=== PATIENT | female | born 1975 | race Caucasian/White ===

== ENCOUNTER 2022-09-25 09:36 | Outpatient (CLI) | payer OTHER, SELFPAY | END 2022-09-25 09:37 | disposition home or self-care (01) | PROVIDERS: PCP Family Medicine; Referring Provider Family Medicine; Visit Provider Family Medicine | DX: R35.0 Frequency of micturition (principal); I10 Essential (primary) hypertension; R53.83 Other fatigue; Z13.6 Encounter for screening for cardiovascular disorders | CPT/HCPCS: 80048; 80061; 81015; 82728; 84443; 85025 ==

== ENCOUNTER 2023-03-07 08:00 | Outpatient (CLI) | payer OTHER, SELFPAY ==
--- NOTE | 2023-03-07 08:15 | CRLHL7_ITS ---
For Patients: As a result of the Century Cures Act, medical imaging exams and procedure reports are released immediately into your electronic medical record. You may view this report before your referring provider. If you have questions, please contact your health care provider. INDICATION: EXCESSIVE BLEEDING COMPARISON: CT 04/06/2019 TECHNIQUE: 2D bradshaw scale and color Doppler images were acquired of the pelvis using a transabdominal and transvaginal approach. FINDINGS: Sonographic images demonstrate a normal size and smooth outer contour of the uterus. Uterus measures 9.2 cm in length by 5.4 cm in AP diameter by 6.3 cm in transverse dimension. The myometrium has a heterogeneous echotexture. Intramural fibroid within the left uterine fundus measuring 2.9 x 2.4 x 3.1 cm. Small fundal intramural fibroid measuring 1.5 x 1.4 x 1.3 cm. Additional lower uterine segment posterior fibroid measuring 1.4 x 0.9 x 1.3 cm. The endometrial lining appears thickened and irregular and measures 13 mm in composite thickness. The ovaries are not visualized. There is an area of indeterminate and ill-defined hypoechoic tissue within the right lower quadrant measuring 3.3 x 1.9 x 2.9 cm. IMPRESSION: Multiple uterine fibroids measuring up to 3.1 cm. Thickened heterogeneous endometrium measuring 1.3 cm. Indeterminate area of ill-defined tissue within the right lower quadrant corresponding to the area of tenderness measuring 3.3 cm. This may represent a hernia although this was not present on the prior study. Further evaluation with CT may be useful. Nonvisualization of the ovaries. No excess pelvic free fluid. Dictated by Abhijeet Rich MD @ 03/08/2023 4:18:17 PM (Electronically Signed)
== END 2023-03-07 08:01 | disposition home or self-care (01) ==
LOC: US 08:01
PROVIDERS: PCP Family Medicine; Visit Provider Family Medicine
DX: N93.9 Abnormal uterine and vaginal bleeding, unspecified (principal); D25.9 Leiomyoma of uterus, unspecified; R93.89 Abnormal findings on diagnostic imaging of other specified body structures
CPT/HCPCS: 76830; 76856

== ENCOUNTER 2023-03-26 09:38 | Outpatient (CLI) | payer OTHER, SELFPAY ==
--- NOTE | 2023-03-26 10:00 | CRLHL7_ITS ---
For Patients: As a result of the Century Cures Act, medical imaging exams and procedure reports are released immediately into your electronic medical record. You may view this report before your referring provider. If you have questions, please contact your health care provider. Indication: right lower quadrant pain, right groin pain since Technique: Postcontrast CT abdomen and pelvis. 125 cc Isovue 370 intravenous contrast. Please note that all CT scans at this facility use dose modulation, iterative reconstruction, and/or weight-based dosing when appropriate to reduce radiation dose to as low as reasonably achievable. Comparison: 03/07/2023 pelvic ultrasound, 04/06/2019 CT abdomen and pelvis Findings: Benign 3 millimeter calcified granuloma is present within the right middle lobe. No pleural effusion or basilar infiltrate. The liver is within normal limits. No stigmata of cirrhosis. The gallbladder is normal. No calcified gallstones or biliary obstruction. Stable calcification in the pancreatic tail. No pancreatic lesion. Spleen normal. 2.2 cm hiatal hernia. Adrenal glands are normal. Normal kidneys. No solid renal mass or renal stone. No hydronephrosis. No free air. Uterine fibroids again noted with lobular contour of the uterine fundus. Ovaries are normal. A few scattered air-fluid levels are present within nondistended loops of right colon. The appendix is within normal limits. The ureters are unremarkable. The bladder is within normal limits. Scattered subcentimeter retroperitoneal lymph nodes are similar. No vertebral body compression fracture. No intrinsic osseous lesion. Umbilical hernia containing fat is present measuring 1.[address] evidence of inguinal hernia or femoral hernia. Impression: No CT evidence of right lower quadrant abdominal wall hernia. 1.4 cm umbilical hernia containing fat is present. No bowel involvement. Fibroid uterus. 2.2 cm hiatal hernia. Benign 3 millimeter right middle lobe calcified granuloma. Please note that all CT scans at this facility use dose modulation, iterative reconstruction, and/or weight-based dosing when appropriate to reduce radiation dose to as low as reasonably achievable. Dictated by Abhijeet Rich MD @ 03/26/2023 1:24:41 PM (Electronically Signed)
== END 2023-03-26 09:39 | disposition home or self-care (01) ==
LOC: CT 09:42
PROVIDERS: PCP Family Medicine; Visit Provider Surgery
DX: R10.31 Right lower quadrant pain (principal); D25.9 Leiomyoma of uterus, unspecified; K44.9 Diaphragmatic hernia without obstruction or gangrene
CPT/HCPCS: 74177; Q9967

== ENCOUNTER 2023-11-19 11:39 | Outpatient (CLI) | payer OTHER, SELFPAY ==
--- OUTSIDE RECORDS SUMMARY | 2023-11-19 11:43 | XMS_ITS | Clinical Summary ---
Author Name Unknown Organization [employer] [facility] Address [place], [place] [address] Care Team Providers Care Lime Boiler Name Role Phone Pcp, No Primary Care Provider Unavailabl e Allergies Active Allergy Reactions Criticality Noted Date Comments Gianfranco Inhibitors Cough 09/22/2017 Amoxicillin Rash 10/18/2015 Medications Medication Sig Dispensed Refills Start Date End Date Status MULTIVITAMIN TAB take 1 tablet by oral route once daily with food 0 03/17/2007 Active fluticasone (50 mcg per actuation) nasal solution (FLONASE)Indications:A llergic rhinitis, unspecified allergic rhinitis type Inhale 1 [place] in the nostril(s) once daily. 3 Bottle 3 03/14/2016 Active albuterol HFA (PROAIR HFA) 90 mcg/actuation inhalerIndications:Ast hma exacerbation Inhale 2 Puffs by mouth every 4 hours if needed. 1 Inhaler 12 10/09/2016 Active escitalopram oxalate (LEXAPRO) 10 mg tabletIndications:Gene ralized anxiety disorder Take 1 tablet by mouth once daily. 90 tablet 3 09/22/2017 Active atenolol-chlorthalidon e, 100-25 mg, (TENORETIC 100) 100-25 mg tabletIndications:Hype rtension Take 1 tablet by mouth once daily. 30 tablet 07/21/2018 Active Active Problems Problem Noted Date Diagnosed Date Hypertension 09/22/2017 Vitamin D deficiency 11/26/2010 Ulcerative colitis 08/24/2009 Resolved Problems Problem Noted Date Diagnosed Date Resolved Date Other and unspecified noninf ectious gastroenteritis and colitis(558.9) 04/27/200908/24 Unspecified essential hypertension 11/19/2006 09/22/2017 Immunizations Name Administration Dates Next Due Influenza, IIV3 (Age >=3 years) 03/30/2013,04/10,05/20/2008 Tdap 11/22/2010 Family History Medical History Relation Name Comments Heart Disease Father NM Genetic Maternal Grandmother Myasthe marta Gravis Hypertension Mother Asthma Sister 3 Other Sister 4 SLE Cancer-breast No Family History Relation Name Status Comments Brother Alive half Daughter Alive X2 Father Alive Maternal Grandfather Maternal Grandmother Alive Mother Alive Paternal Grandfather Paternal Grandmother Sister 1 Alive Sister 2 Alive half Sister 3 Sister 4 Social History Tobacco Use Types Packs/Day Years Used Date Smoking Tobacco: Former Cigarettes Q uit: 03/07/2002 Smokeless Tobacco: Never Tobacco Cessation:Counseling Given: Yes Alcohol Use Standard Drinks/Week Comments Yes 0 (1 standard drink = 0.6 oz pur e alcohol) PHQ-2 Answer Date Recorded PHQ-2 Score 0 09/13/2018 Sex and Gender Information Value Date Recorded Sex Assigned at Not on file Gender Identity Not on file Sexual Orientation Not on file Obstetrics History Para Term AB IAB SAB Ectopic Multiple Livin g Live Births 3 2 2 0 1 0 1 0 0 2 3 Date Outcome GA Total Labor Labor/2nd/3rd Weight Sex Delivery Anes PTL Patricia A1 A5 Name Cl in 12/08 Term 40w 0d 3.97 kg (8 lb 12 oz) F Opal ng 7 10 Ol[place] a [place] Delivery Location:[facility] Comments:Failed Induct ion 11/11 SAB 6w0 d SPONTANEO US Dece ased 03/10 Term 38w 0d 3.74 kg (8 lb 4 oz) F Opal ng Brandee McInt [place] Delivery Location:[facility] Last Filed Vital Signs Vital Sign Reading Time Taken Comments Blood Pressure 158/102 09/22/2017 9:25 AM CDT Pulse 68 09/22/2017 9:25 AM CDT Temperature 37.2 ??C (98.9 ??F) 10/01/2016 8:28 PM CD T Respiratory Rate 14 09/22/2017 9:25 AM CDT Oxygen Saturation 98% 10/09/2016 9:16 AM CDT room air Inhaled Oxygen Concentration - - Weight 110.2 kg (242 lb 14.4 oz) 09/22/2017 9:25 AM CDT Height 161.3 cm (5' 3.5) 09/22/2017 9:25 AM CDT Body Mass Index 42.35 09/22/2017 9:25 AM CDT Plan of Treatment Health Maintenance Due Date Last Done Comments Hepatitis C screening for age 18-79 1991 Colonoscopy through age 75 2018 12/01/2007 Mammogram for age 45-75 2018 11/06/19 17, 11/28/2010, 09/04/2009 BMI (ht and wt on same day) for age 18+ 09/22/2018 09/22/2017, 10/01/2016, 03/14/2016, Additional history exists Depression screening for age 12+ 09/22/2018 09/22/2017, 03/14/2016 Tetanus booster 11/22/2020 11/22/2010 Lipids for age 45-75 09/22/2022 09/22/2017, 11/23/2014, 03/30/2013, Additional history exists COVID-19 vaccine series ( - 2022-24 season) 2023 Zoster (shingles) series for age 50+ (1 of 2) 2023 Influenza for age 50-64 03/14/2024 03/30/20 13, 04/10/2009, 05/20/2008 Pap test for age 21-65 05/25/2024 , 05/25/2021, 09/22/2017, Additional history exists HIV for age 15-65 Completed 09/14/2007 Tdap Completed 11/22/2010 Pneumococcal series for age 6-64 Aged Out No longer eligible based on patient's age to complete this topic Goals Goal Patient Goal Type Associated Problems Recent Progress Patient-Stated? Author BLOOD PRESSURE - MAINTAINS BP less than 140/90 Blood Pressure No Abhijeet Bell MD Procedures Procedure Name Priority Date/Time Associated Diagnosis Comments HPV THIN PREP Routine 05/25/2021 8:00 AM DECKHAND LIPID PANEL W REFLEX MEASURED LDL Routine 09/22/2017 10:20 AM CDT Hypertension XR MAMMO BILAT SCREENING Routine 11/05/2016 7:51 AM CDT Encounter for mammogram to establish baseline mammogram COLONOSCOPY DIAGNOSTIC Routine 12/01/2007 Diarrhea ANTI HIV 1/2 Routine 09/14/2007 10:11 AM DECKHAND Supervision Of Other Normal from Last 3 Months or Most Recently Relevant to Health Maintenance Results * HPV HIGH RISK (05/25/2021 8:00 AM DECKHAND) TYPE 16 Negative Negative 05/29/2021 11:56 AM DECKHAND [facility] TYPE 18 Negative Negative 05/29/2021 11:56 AM DECKHAND [facility] OTHER HIGH RISK TYPES Negative Negative 05/29/2021 11:56 AM DECKHAND [facility] Other (Cervical/Vagina l) 05/25/2021 8:00 AM DECKHAND 05/28/2021 9:48 AM DECKHAND Narrative [facility] - 05/29/2021 11:56 AM DECKHAND HPV types 16, 18, 31, 33, 35, 39, 45, 51, 52, 56, 58, 59, 66 and 68 DNA were undetectable or below the pre-set threshold. Methodology: Loni Arnol 4800 HPV Test Abhijeet Bell MD MICROBIOLOGY [facility] [address] [place] [address], * LIPID PANEL W REFLEX MEASURED LDL (09/22/2017 10:20 AM CDT) CHOLESTEROL,TOTAL 164 100 - 199 mg/dL 09/22/2017 11:24 AM CDT [facility] TRIGLYCERIDES 86 <150 mg/dL 09/22/2017 11:24 AM CDT [facility] HDL CHOLESTEROL 59 >40 mg/dL 8 11:24 AM CDT [facility] NON-HDL CHOLESTEROL 105 <145 mg/dl 09/22/2017 11:24 AM CDT [facility] CHOL/HDL RATIO 2.78 <4.50 09/22/2017 11:24 AM CDT [facility] LDL CHOLESTEROL 88 <=130 mg/dL 09/22/2017 11:24 AM CDT [facility] PROVIDER ORDERED STATUS RANDOM 09/22/2017 11:24 AM CDT [facility] Blood BLOOD SPECIMEN / Unknown Venipuncture / Unknown 09/22/2017 10:20 AM CDT 09/22/2017 10:21 AM CDT Abhijeet Bell MD CHEMISTRY [facility] [address] [place] [address] * XR MAMMO BILAT SCREENING (11/05/2016 7:51 AM CDT) Anatomical Region Laterality Modality BREASTS, Breast Left, Breast Right Bilateral Mammography Impressions 11/05/2016 9:35 AM CDT ??There is no radiographic evidence for malignancy. ??Recommend annual mammograms. A lay language report of this examination will be provided to the patient. MAMMOGRAM ASSESSMENT: ??ACR 1 Negative Narrative 11/05/2016 9:35 AM CDT XR MAMMO BILAT SCREENING [[id number]] CLINICAL HISTORY: ??This is an asymptomatic 41 y.o. patient. INDICATION FOR EXAM: Mammogram Screening. TECHNIQUE: CC & MLO views were obtained. ??This digital study was evaluated with the assistance of Computer-Aided Detection. COMPARISON FILM: Yes 11/28/10 [facility] FINDINGS: ??Mammographically, the breast tissue has scattered fibroglandular densities. ??There are no dominant masses, suspicious micro calcifications or areas of architectural distortion. Abhijeet Bell MD MAMMO * COLONOSCOPY DIAGNOSTIC (12/01/2007) Abhijeet Bell MD GI PROCEDURE ORD * ANTI HIV 1/2 (09/14/2007 10:11 AM DECKHAND) ANTI HIV 1/2 Non-reacti ve [facility] Blood specimen (specimen) BLOOD SPECIMEN / Unknown 09/14/2007 10:11 AM DECKHAND 09/14/2007 9:56 AM DECKHAND Abhijeet Bell MD SEND OUTS [facility] [place]NAL ZIP [id number] [address] from Last 3 Months or Most Recently Relevant to Health Maintenance Care Teams Lime Boiler Relationship Specialty Start Date End Date Pcp, No . PCP - General 07/22/18
== END 2023-11-19 11:40 | disposition home or self-care (01) ==
PROVIDERS: PCP Family Medicine; Visit Provider Family Medicine
DX: I10 Essential (primary) hypertension (principal); N32.81 Overactive bladder; Z13.220 Encounter for screening for lipoid disorders; Z13.29 Encounter for screening for other suspected endocrine disorder
CPT/HCPCS: 80048; 80061; 81001; 84443; 85025; 87086

== ENCOUNTER 2023-12-08 19:25 | Outpatient (CLI) | payer OTHER, SELFPAY ==
--- OUTSIDE RECORDS SUMMARY | 2023-12-08 19:27 | XMS_ITS | Clinical Summary ---
Author Organization [facility] Address [place], [place] [address] Care Team Providers Care Oracle Data Warehouse Developer Name Role Phone Pcp, No Primary Care [...] rhinitis, unspecified allergic rhinitis type Inhale 1 [place] in the nostril(s) once daily. 3 Bottle [...] History Relation Name Comments Heart Disease Father [place] Genetic Maternal Grandmother Myasthe marta Gravis Hypertension [...] 7 10 [place] Delivery Location:[facility] Comments:Failed Induct ion 11/11 SAB 6w0 [...] HPV THIN PREP Routine 05/25/2021 8:00 AM EGG GRADER LIPID PANEL W REFLEX MEASURED LDL Routine 09/22/2017 10:20 AM CDT Hypertension XR MAMMO BILAT SCREENING Routine 11/05/2016 7:51 AM CDT Encounter for mammogram to establish baseline mammogram COLONOSCOPY DIAGNOSTIC Routine 12/01/2007 Diarrhea ANTI HIV 1/2 Routine 09/14/2007 10:11 AM EGG GRADER Supervision Of Other Normal from Last 3 Months or Most Recently Relevant to Health Maintenance Results * HPV HIGH RISK (05/25/2021 8:00 AM EGG GRADER) TYPE 16 Negative Negative 05/29/2021 11:56 AM EGG GRADER [facility] TYPE 18 Negative Negative 05/29/2021 11:56 AM EGG GRADER [facility] OTHER HIGH RISK TYPES Negative Negative 05/29/2021 11:56 AM EGG GRADER [facility] Other (Cervical/Vagina l) 05/25/2021 8:00 AM EGG GRADER 05/28/2021 9:48 AM EGG GRADER Narrative [facility] - 05/29/2021 11:56 AM EGG GRADER HPV types 16, 18, 31, 33, 35, 39, 45, 51, 52, 56, 58, 59, 66 and 68 DNA were undetectable or below the pre-set threshold. Methodology: Loni Arnol 4800 HPV Test Abhijeet Bell MD MICROBIOLOGY [facility] [address] [place] [address], * LIPID PANEL W REFLEX MEASURED LDL (09/22/2017 10:20 AM CDT) CHOLESTEROL,TOTAL 164 100 - 199 mg/dL 09/22/2017 11:24 AM CDT [facility] TRIGLYCERIDES 86 <150 mg/dL 09/22/2017 11:24 AM CDT [facility] HDL CHOLESTEROL 59 >40 mg/dL 8 11:24 AM CDT [facility] NON-HDL CHOLESTEROL 105 <145 mg/dl 09/22/2017 11:24 AM CDT [facility] CHOL/HDL RATIO 2.78 <4.50 09/22/2017 11:24 AM CDT [facility] LDL CHOLESTEROL 88 <=130 mg/dL 09/22/2017 11:24 AM CDT [facility] PROVIDER ORDERED STATUS RANDOM 09/22/2017 11:24 AM CDT [facility] Blood BLOOD SPECIMEN / Unknown Venipuncture / Unknown 09/22/2017 10:20 AM CDT 09/22/2017 10:21 AM CDT Abhijeet Bell MD CHEMISTRY [facility] [address] [place] [address] * XR MAMMO BILAT SCREENING (11/05/2016 7:51 AM CDT) Anatomical Region Laterality Modality BREASTS, Breast Left, Breast Right Bilateral Mammography Impressions 11/05/2016 9:35 AM CDT ??There is no radiographic evidence for malignancy. ??Recommend annual mammograms. A lay language report of this examination will be provided to the patient. MAMMOGRAM ASSESSMENT: ??ACR 1 Negative Narrative 11/05/2016 9:35 AM CDT XR MAMMO BILAT SCREENING [[id number]] CLINICAL HISTORY: ??This is an asymptomatic 41 y.o. patient. INDICATION FOR EXAM: Mammogram Screening. TECHNIQUE: CC & MLO views were obtained. ??This digital study was evaluated with the assistance of Computer-Aided Detection. COMPARISON FILM: Yes 11/28/10 [facility] DIAGNOSTIC IMAGING FINDINGS: ??Mammographically, the breast tissue has scattered fibroglandular densities. ??There are no dominant masses, suspicious micro calcifications or areas of architectural distortion. Abhijeet Bell MD MAMMO * COLONOSCOPY DIAGNOSTIC (12/01/2007) Abhijeet Bell MD GI PROCEDURE ORD * ANTI HIV 1/2 (09/14/2007 10:11 AM EGG GRADER) ANTI HIV 1/2 Non-reacti ve [facility] Blood specimen (specimen) BLOOD SPECIMEN / Unknown 09/14/2007 10:11 AM EGG GRADER 09/14/2007 9:56 AM EGG GRADER Abhijeet Bell MD SEND OUTS [facility] [place]NAL ZIP [phone] [address] from Last 3 Months or Most Recently Relevant to Health Maintenance Care Teams Oracle Data Warehouse Developer Relationship Specialty Start Date End Date Pcp, No . PCP - General 07/22/18
--- NOTE | 2023-12-30 08:48 | W.PM.SLEEP ---
Sleep Study Details Details Interpreting Provider: Alexandra De Souza Date of Sleep Study: 12/08/23 Sleep Study Details: STUDY TYPE: Home unattended ? BMI:? 42.9 ORDERING PROVIDER:? Arabella INDICATION:? Concern about sleep apnea ? SLEEP SUMMARY:? 431.2 minutes monitored RESPIRATORY SUMMARY:? AHI 71.1 Low oxygen 71 61.5% of study oxygen less than 90% Snoring 94.8% PERIODIC LIMB MOVEMENTS OF SLEEP:? Not recorded CARDIAC:? Range 48-106, mean 67.1 IMPRESSION:? Severe obstructive sleep apnea with significant hypo oxygenation RECOMMENDATION: Treatment options include in-lab titration versus AutoSet CPAP. Weight loss is recommended that
== END 2023-12-08 19:26 | disposition home or self-care (01) ==
LOC: SLEEP 19:26
PROVIDERS: PCP Family Medicine; Visit Provider Family Medicine
DX: G47.33 Obstructive sleep apnea (adult) (pediatric) (principal)
CPT/HCPCS: 95806

== ENCOUNTER 2024-02-09 09:04 | Emergency (ER) | payer OTHER, SELFPAY ==
[2024-02-09 09:09] VITALS: BP 193/115; PULSE 76; RESP 18; TEMP 36.4; O2SAT 98; BMI 51.2
--- NOTE | 2024-02-09 09:49 | CRLHL7_ITS ---
For Patients: As a result of the Century Cures Act, medical imaging exams and procedure reports are released immediately into your electronic medical record. You may view this report before your referring provider. If you have questions, please contact your health care provider. Indication: Chest discomfort. Technique: Two view(s) of the chest. Comparison: None available. Findings: Mildly enlarged cardiomediastinal silhouette. Pulmonary vasculature is normal. Lungs are well inflated. No focal consolidation. No pleural effusion or pneumothorax. No acute osseous abnormality identified. Impression: Mild cardiomegaly. Otherwise, no acute cardiopulmonary abnormality identified. Dictated by Jaycee Oswald MD @ 02/09/2024 10:16:20 AM (Electronically Signed)
--- NOTE | 2024-02-09 09:51 | ED.CHESTPAIN ---
HPI - Chest Pain General Chief Complaint: Chest Pain Stated Complaint: chest pain, short of breath Time Seen by Provider: 02/09/24 09:31 History of Present Illness HPI narrative: This 48-year-old female comes in reporting some upper chest discomfort that is reproducible with certain movements. She also has some similar discomfort in her upper back. She has had some nausea and generalized tingling sensation also. She states that she was painting in the heat about a week ago and wonders if this triggered some of these feelings. She does not report any lightheadedness or shortness of breath. She does not have any worsening symptoms with exertion. Related Data Previous Rx's ?Medication ?Instructions ?Recorded losartan 100 1 tab PO QDAY #90 tabs 11/19/23 mg-hydrochlorothiazide 25 mg tablet albuterol sulfate 90 mcg/actuation 2 puff inhalation Q4-6H PRN 11/26/23 aerosol inhaler shortness of breath or wheezing #8.5 grams tolterodine 2 mg tablet (Detrol) 2 mg PO BID #180 tabs 01/13/24 amlodipine 5 mg tablet 5 mg PO QDAY #90 tabs 02/03/24 fluoxetine 40 mg capsule 40 mg PO QDAY #90 caps 02/03/24 Allergies Allergy/AdvReac Type Severity Reaction Status Date / Time amoxicillin Allergy Mild Rash Verified 12/31/23 09:36 RITIKA Inhibitors AdvReac Mild Cough Verified 12/31/23 09:36 seasonal Allergy Mild Congested Uncoded 12/31/23 09:36 Review of Systems Status of ROS Reports: 10 or more systems reviewed and unremarkable except as noted in History and below Narrative Constitutional: No fevers, no weight gain or loss. Eyes: No discharge. No vision changes. HENT: No congestion, no sore throat, no ear pain. Cardiovascular: No palpitations. Upper anterior chest discomfort reproducible with certain movements and when taking a deep breath. Respiratory: No shortness of breath, no wheezes, no cough. Gastrointestinal: No abdominal pain, no vomiting, no diarrhea. Genitourinary: No dysuria, no hematuria. Musculoskeletal: Normal range of motion. Skin: No rashes, no pruritis. Neurological: No dizziness, weakness, sensory change, speech change. Endo/Heme/Allergies: No bruising or bleeding. No polydipsia. Pysch: no suicidality, no anxiety, no insomnia. All other systems reviewed and are negative. [facility] Medical History (Updated 02/09/24 @ 10:57 by Augusto Barbosa MD) Primary hypertension ?I10 - Essential (primary) hypertension (ICD-10) Snoring ?R06.83 - Snoring (ICD-10) Daytime somnolence ?R40.0 - Somnolence (ICD-10) OAB (overactive bladder) ?N32.81 - Overactive bladder (ICD-10) Raynaud's phenomenon ?I73.00 - Raynaud's syndrome without gangrene (ICD-10) Vitamin D deficiency ?E55.9 - Vitamin D deficiency, unspecified (ICD-10) Ulcerative colitis ?K51.90 - Ulcerative colitis, unspecified, without complications (ICD-10) Morbid obesity with BMI of 45.0-49.9, adult ?E66.01 - Morbid (severe) obesity due to excess calories (ICD-10) ?Z68.42 - Body mass index [BMI] 45.0-49.9, adult (ICD-10) Iron deficiency anemia ?D50.9 - Iron deficiency anemia, unspecified (ICD-10) Anxiety ?F41.9 - Anxiety disorder, unspecified (ICD-10) Chronic major depressive disorder ?F32.9 - Major depressive disorder, single episode, unspecified (ICD-10) Acute allergic rhinitis ?J30.9 - Allergic rhinitis, unspecified (ICD-10) Surgical History (Updated 10/05/22 @ 19:52 by Ray Dominique) History of tubal ligation ?Z98.51 - Tubal ligation status (ICD-10) History of tonsillectomy and adenoidectomy ?Z90.89 - Acquired absence of other organs (ICD-10) History of section ?Z98.891 - History of uterine scar from previous surgery (ICD-10) Family History (Updated 10/13/22 @ 20:36 by Abhijeet Bell MD) Sister Asthma Father Heart disease Lung cancer Mother Stroke Other Pulmonary fibrosis Social History (Updated 10/13/22 @ 20:35 by Abhijeet Bell MD) Narrative: - Jose Armando, 2 kids, social EtOH, non-smoker, 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 Smoking Status: Former smoker Do you use any of these nicotine containing products: None Second hand tobacco smoke exposure: No How often do you have a drink containing alcohol: 2-3 times a week How many standard drinks containing alcohol do you have on a typical day: 5 or 6 How often do you have six or more drinks on one occasion: Weekly AUDIT-C Alcohol total score: 8 Non-prescribed substance use: denies use Little interest or pleasure in doing things: not at all Feeling down, depressed, or hopeless: not at all Exam Narrative Exam Narrative: Constitutional: Well-developed, well-nourished, no acute distress. HEENT: Normocephalic, atraumatic. Neck: Normal range of motion. Nontender. Supple. Heart: Regular. No murmurs. Normal rate. Intact distal pulses. Lungs: Clear to auscultation. No chest discomfort. No wheezes, rhonchi, or rales. Abdomen: Normal bowel sounds. Nontender. No rebound tenderness. Genitalia: Deferred. Back: No midline tenderness. Normal range of motion. Extremities: Normal range of motion. No injury. Skin: Intact. No rash. Warm. No erythema or pallor. Neurologic: No altered sensation. No weakness. Alert and oriented. No facial asymmetry. Tongue is midline. [id number] is normal. No pronator drift. Carpenter Repairer strength is equal bilaterally. Able to raise each leg from the bed. Psychiatric: No suicidality. No anxiety or depression. No insomnia. Nursing notes and vitals signs are reviewed. Const Vital Signs, click to edit/add: Vital Signs - 24 hr 02/09/24 09:09 Temperature 97.5 F L Pulse Rate [Right Pulse Oximeter] 76 Respiratory Rate 18 Blood Pressure [Right Upper Arm] 193/115 H Pulse Oximetry 98 Oxygen Delivery Method Room Air Course Vital Signs Vital signs: Initial Vital Signs Temperature 97.5 F L 02/09/24 09:09 Temperature Source Temporal Artery Scan 02/09/24 09:09 Pulse Rate 76 02/09/24 09:09 Respiratory Rate 18 02/09/24 09:09 Blood Pressure 193/115 H 02/09/24 09:09 Blood Pressure Mean 141 H 02/09/24 09:09 Blood Pressure Position Sitting 02/09/24 09:09 Pulse Oximetry 98 02/09/24 09:09 Oxygen Delivery Method Room Air 02/09/24 09:09 Vital Signs Temperature 97.5 F L 02/09/24 09:09 Pulse Rate 76 02/09/24 09:09 Respiratory Rate 18 02/09/24 09:09 Blood Pressure 193/115 H 02/09/24 09:09 Pulse Oximetry 98 02/09/24 09:09 Oxygen Delivery Method Room Air 02/09/24 09:09 Temperature 97.5 F L 02/09/24 09:09 Pulse Rate 76 02/09/24 09:09 Respiratory Rate 18 02/09/24 09:09 Blood Pressure 193/115 H 02/09/24 09:09 Pulse Oximetry 98 02/09/24 09:09 Oxygen Delivery Method Room Air 02/09/24 09:09 MDM - Chest Pain MDM Narrative Medical decision making narrative: This patient comes in reporting some upper chest discomfort that is reproducible with certain movements. She arrives with normal vital signs. I did check EKG, chest x-ray, and labs and these all returned with reassuring findings. This patient's symptoms are likely due to chest wall discomfort. She was doing some out of the ordinary activities recently that may have contributed to this. She is okay to be discharged home. Lab Data Labs: Lab Results 02/09/24 Range/Units 10:02 WBC 8.02 (4.50-11.00) K/uL RBC 4.12 (4.00-5.20) m/uL Hgb 12.0 (12.0-16.0) gm/dL Hct 37.0 (33.0-51.0) % MCV 90 (80-100) fL MCH 29 (26-34) pg MCHC 32 (32-36) gm/dL RDW Coeff of Vanessa 13.7 (11.5-15.5) % Plt Count 289 (140-440) K/uL Neut % (Auto) 76.6 H (42.0-72.0) % Lymph % (Auto) 12.6 L (20-44) % [place] % (Auto) 9.0 (0.0-11.0) % Eos % (Auto) 1.2 (0.0-7.0) % Baso % (Auto) 0.2 (0.0-3.0) % Neut # (Auto) 6.10 (1.7-7.0) K/uL Lymph # (Auto) 1.00 (0.90-2.90) K/uL Radford # (Auto) 0.70 (0.00-0.90) K/UL Eos # (Auto) 0.10 (0.00-0.50) K/uL Baso # (Auto) 0.02 (0.00-0.30) K/uL Abs Immat Gran (auto) 0.03 (0.00-0.30) K/uL Imm/Tot Granulo (auto) 0.4 % Sodium 136 (135-149) mmol/L Potassium 3.7 (3.6-5.1) mmol/L Chloride 101 (96-114) mmol/L Carbon Dioxide 28 (20-32) mmol/L Anion Gap 7 (7-15) mEq/L BUN 13 (7-30) mg/dL Creatinine 0.7 (0.5-1.5) mg/dL Estimated Creat Clear 76.04 Estimated GFR 105 ml/min Glucose 105 (60-115) mg/dL Calcium 9.1 (8.4-10.6) mg/dL POC Troponin I 0.00 L (0.01-0.04) ng/ml Imaging Data Chest x-ray: Radiologist's impression: Mild cardiomegaly. Otherwise, no acute cardiopulmonary abnormality identified. ECG Data Attestation: I personally reviewed and interpreted this ECG as follows: Interpretation: Normal sinus rhythm. Rate is 63 beats per minute. There are no ST or T-wave abnormalities. Discharge Plan Discharge Clinical Impression: Acute chest wall pain Patient Disposition: Home, Self-Care Condition: Stable Additional Instructions: Continue current plans. Increase activity as tolerated. Follow up with MD return if worsening. Prescriptions: No Action losartan-hydrochlorothiazide 100-25 mg tablet 1 tab PO QDAY Qty: 90 1RF albuterol sulfate 90 mcg/actuation HFA aerosol inhaler 2 puff inhalation Q4-6H PRN (Reason: shortness of breath or wheezing) Qty: 8.5 1RF tolterodine [Detrol] 2 mg tablet 2 mg PO BID Qty: 180 1RF amlodipine 5 mg tablet 5 mg PO QDAY Qty: 90 2RF fluoxetine 40 mg capsule 40 mg PO QDAY Qty: 90 1RF Follow Up/Referrals: Abhijeet Bell MD [Primary Care Provider] - Stand Alone Forms: At The Pool Info Instructions
--- OUTSIDE RECORDS SUMMARY | 2024-02-09 10:12 | XMS_ITS | Clinical Summary ---
Author Organization [employer] [facility] [employer] [facility] Address [place], [place] [address] Care Team Providers Care Cyber Defense Forensics Analyst Name Role Phone Pcp, No Primary Care [...] rhinitis, unspecified allergic rhinitis type Inhale 1 [employer] in the nostril(s) once daily. 3 Bottle [...] History Relation Name Comments Heart Disease Father OR Genetic Maternal Grandmother Myasthe marta Gravis Hypertension [...] Outcome GA Total Labor Labor/2nd/3rd Weight Sex Type Anes PTL Patricia A1 A5 Name Clin 2002 Term 40w 0d 3.97 kg (8 lb 12 oz) F C-Sect ion Livin g 7 10 Emma McInt yre Delivery Location:[facility] Comments:Failed Induct ion 2006 SAB 6w0 d SPONTA NEOUS Decea sed 2007 Term 38w 0d 3.74 kg (8 lb 4 oz) F C-Sect ion Livin g Brandee McInt yre Delivery Location:[facility] Last Filed [...] HPV THIN PREP Routine 05/25/2021 8:00 AM GAS WELDING EQUIPMENT MECHANIC LIPID PANEL W REFLEX MEASURED LDL Routine 09/22/2017 10:20 AM CDT Hypertension XR MAMMO BILAT SCREENING Routine 11/05/2016 7:51 AM CDT Encounter for mammogram to establish baseline mammogram COLONOSCOPY DIAGNOSTIC Routine 12/01/2007 Diarrhea ANTI HIV 1/2 Routine 09/14/2007 10:11 AM GAS WELDING EQUIPMENT MECHANIC Supervision Of Other Normal from Last 3 Months or Most Recently Relevant to Health Maintenance Results * HPV HIGH RISK (05/25/2021 8:00 AM GAS WELDING EQUIPMENT MECHANIC) TYPE 16 Negative Negative 05/29/2021 11:56 AM GAS WELDING EQUIPMENT MECHANIC [facility] TYPE 18 Negative Negative 05/29/2021 11:56 AM GAS WELDING EQUIPMENT MECHANIC [facility] OTHER HIGH RISK TYPES Negative Negative 05/29/2021 11:56 AM GAS WELDING EQUIPMENT MECHANIC [facility] Other (Cervical/Vagina l) 05/25/2021 8:00 AM GAS WELDING EQUIPMENT MECHANIC 05/28/2021 9:48 AM GAS WELDING EQUIPMENT MECHANIC [facility]ative [facility] - 05/29/2021 11:56 AM GAS WELDING EQUIPMENT MECHANIC HPV types 16, 18, 31, 33, 35, 39, 45, 51, 52, 56, 58, 59, 66 and 68 DNA were undetectable or below the pre-set threshold. Methodology: Loni Arnol 4800 HPV Test Abhijeet Bell MD MICROBIOLOGY [facility] [address] [place] [address], * LIPID PANEL W REFLEX MEASURED LDL (09/22/2017 10:20 AM CDT) CHOLESTEROL,TOTAL 164 100 - 199 mg/dL 09/22/2017 11:24 AM CDT [facility] TRIGLYCERIDES 86 <150 mg/dL 09/22/2017 11:24 AM CDT [facility] HDL CHOLESTEROL 59 >40 mg/dL 8 11:24 AM CDT [facility] NON-HDL CHOLESTEROL 105 <145 mg/dl 09/22/2017 11:24 AM CDT [facility] CHOL/HDL RATIO 2.78 <4.50 09/22/2017 11:24 AM CDT [facility] LDL CHOLESTEROL 88 <=130 mg/dL 09/22/2017 11:24 AM CDT [facility] PROVIDER ORDERED STATUS RANDOM 09/22/2017 11:24 AM CDT [facility] Blood BLOOD SPECIMEN / Unknown Venipuncture / Unknown 09/22/2017 10:20 AM CDT 09/22/2017 10:21 AM CDT Abhijeet Bell MD CHEMISTRY [facility] [address] [place] [address] * XR MAMMO BILAT SCREENING (11/05/2016 7:51 AM CDT) Anatomical Region Laterality Modality BREASTS, Breast Left, Breast Right Bilateral Mammography Impressions 11/05/2016 9:35 AM CDT ??There is no radiographic evidence for malignancy. ??Recommend annual mammograms. A lay language report of this examination will be provided to the patient. MAMMOGRAM ASSESSMENT: ??ACR 1 Negative Narrative 11/05/2016 9:35 AM CDT XR MAMMO BILAT SCREENING [[id number]] CLINICAL HISTORY: ??This is an asymptomatic 41 y.o. patient. INDICATION FOR EXAM: Mammogram Screening. TECHNIQUE: CC & MLO views were obtained. ??This digital study was evaluated with the assistance of Computer-Aided Detection. COMPARISON FILM: Yes 11/28/10 [facility] DIAGNOSTIC IMAGING FINDINGS: ??Mammographically, the breast tissue has scattered fibroglandular densities. ??There are no dominant masses, suspicious micro calcifications or areas of architectural distortion. Abhijeet Bell MD MAMMO * COLONOSCOPY DIAGNOSTIC (12/01/2007) Abhijeet Bell MD GI PROCEDURE ORD * ANTI HIV 1/2 (09/14/2007 10:11 AM GAS WELDING EQUIPMENT MECHANIC) ANTI HIV 1/2 Non-reacti ve [facility] Blood specimen (specimen) BLOOD SPECIMEN / Unknown 09/14/2007 10:11 AM GAS WELDING EQUIPMENT MECHANIC 09/14/2007 9:56 AM GAS WELDING EQUIPMENT MECHANIC Abhijeet Bell MD SEND OUTS [facility] [place]NAL ZIP [address] [address] from Last 3 Months or Most Recently Relevant to Health Maintenance Care Teams Cyber Defense Forensics Analyst Relationship Specialty Start Date End Date Pcp, No . PCP - General 07/22/18
[2024-02-09 10:18] LABS: Basophils Absolute Auto 0.02 K/uL (0.00-0.30); Basophils Percent Auto 0.2 % (0.0-3.0); Eosinophils Percent Auto 1.2 % (0.0-7.0); Immature Granulocytes Abs Auto 0.03 K/uL (0.00-0.30); Immature Granulocytes Pct Auto 0.4 %; Lymphocytes Percent Auto 12.6 % (20-44); Mean Corpuscular HGB Conc 32 gm/dL (32-36); Mean Corpuscular Hemoglobin 29 pg (26-34); Mean Corpuscular Volume 90 fL (80-100); Neutrophils Percent Auto 76.6 % (42.0-72.0); Platelet Count* 289 K/uL (140-440); RDW Coefficient of Variation % 13.7 % (11.5-15.5); Red Blood Count 4.12 m/uL (4.00-5.20); White Blood Count* 8.02 K/uL (4.50-11.00)
[2024-02-09 10:21] LABS: Slide Review Reflex No
[2024-02-09 10:29] LABS: Chloride* 101 mmol/L (96-114); Potassium* 3.7 mmol/L (3.6-5.1); Sodium* 136 mmol/L (135-149)
[2024-02-09 10:32] LABS: Anion Gap 7 mEq/L (7-15); Blood Urea Nitrogen* 13 mg/dL (7-30); Calcium* 9.1 mg/dL (8.4-10.6); Carbon Dioxide* 28 mmol/L (20-32); Creatinine* 0.7 mg/dL (0.5-1.5); Est. Creatinine Clearance* 76.04; Estimated Glomerular Filt Rate 105 ml/min; Glucose* 105 mg/dL (60-115)
== END 2024-02-09 11:09 | disposition home or self-care (01) ==
PROVIDERS: Emergency Provider Emergency Medicine Emergency Medical Services; PCP Family Medicine
DX: R07.89 Other chest pain (principal)
CPT/HCPCS: 36415; 71046; 80048; 84484; 85025; 93005; 99284; 99285

== ENCOUNTER 2025-02-01 09:26 | Outpatient (CLI) | payer OTHER, SELFPAY | END 2025-02-01 09:27 | disposition home or self-care (01) | PROVIDERS: PCP Family Medicine; Visit Provider Family Medicine | DX: I10 Essential (primary) hypertension (principal); Z13.6 Encounter for screening for cardiovascular disorders | CPT/HCPCS: 80048; 80061 ==